=== PATIENT | male | born 1980 | race Caucasian/White ===

== ENCOUNTER 2020-11-20 11:13 | Emergency (ER) | payer SELFPAY ==
[~2020-11-20] VITALS: Wt 68.0 kg
[2020-11-20] MEDS ORDERED: SEPTDS PO (12:22)
== END 2020-11-20 12:32 | disposition home or self-care (01) ==
LOC: ED 11:13
DX: N45.4 Abscess of epididymis or testis (principal)

== ENCOUNTER → 2022-01-09 | Outpatient (CLI) | payer BC ==
[~2022-01-09] MED LIST: SEPTDS PO
[2022-01-12 20:07] LABS: FREE PSA 0.325 ng/mL (.)
== END | disposition home or self-care (01) ==
LOC: LAB 12:45
PROVIDERS: ATTEND Nurse Practitioner Family
DX: N40.1 Benign prostatic hyperplasia with lower urinary tract symptoms (principal)

== ENCOUNTER → 2022-01-24 | Outpatient (CLI) | payer BC | END | disposition home or self-care (01) | LOC: US 14:00 | PROVIDERS: ATTEND Nurse Practitioner Family | DX: N50.3 Cyst of epididymis (principal); N43.3 Hydrocele, unspecified ==